=== PATIENT | male | born 1950 | race Caucasian/White ===

== ENCOUNTER 2017-09-10 23:51 | Emergency (ER) | payer MEDICARE ==
[~2017-09-10] VITALS: Ht 195.6 cm; Wt 111.1 kg
[~2017-09-10 23:51] MED LIST: AMLO-99 PO; GABA-547 PO; HYDR-2966 PO; KET10 PO; MOM PO; OMEP-125 PO; OXYC-869 PO; PER PO
--- NOTE | 2017-09-10 23:56 | ER Report ---
History and Physical Time Seen By MD: 23:55 HPI/ROS CHIEF COMPLAINT: Heart racing, chest tightness HISTORY OF PRESENT ILLNESS: 67-year-old male presents a the ER with chest tightness and puppy. Patient with heart racing for approximately 3 hours. Patient notes he had a brief episode of similar symptoms lasting 20 minutes yesterday. And some intermittent symptoms over the last month or so, lasting only a few minutes. Patient denies any diaphoresis, nausea or shortness of breath. He does not feel lightheaded. Patient has no history of cardiac disease. REVIEW OF SYSTEMS: Respiratory: No cough, no dyspnea. Cardiovascular: No chest pain, no palpitations. Gastrointestinal: No vomiting, no abdominal pain. Musculoskeletal: No back pain. Allergies: Coded Allergies: diazepam (Verified Allergy, Unknown, 09/10/17) eszopiclone (Verified Allergy, Unknown, 09/10/17) gabapentin (Verified Adverse Reaction, Intermediate, DIZZINESS, VERTIGO, ) Home Meds Active Scripts Tramadol Hcl (TRAMADOL HCL) 50 Mg Tablet, 1 TAB PO Q6H Y for PAIN, #30 MG TAKE ONE TO TWO TABLETS BY MOUTH EVERY FOUR TO SIX HOURS NEEDED Prov:ROSEY POLLOCK [place] DO 09/11/17 Rivaroxaban 20 Mg (XARELTO 20 MG) 20 Mg Tablet, 20 MG PO DAILY for stroke prevention with A. fib, #30 TAB Prov:ROSEY POLLOCK Lincoln HOLLIDAY 09/11/17 Diltiazem Hcl (CARDIZEM CD) 120 Mg Cap.er.24h, 120 MG PO DAILY for heart rate control, #30 Prov:PHILLROSEY Lincoln HOLLIDAY 09/11/17 Reported Medications Hydrochlorothiazide (HYDROCHLOROTHIAZIDE) 25 Mg Tablet, 0.5 TAB PO QDAY start on 11/01/13 10/25/13 Amlodipine Besylate (AMLODIPINE BESYLATE) 10 Mg Tablet, 0.5 TAB PO QDAY, TAB start on 10/31/13 10/25/13 Omeprazole (OMEPRAZOLE) 20 Mg Capsule.dr, 2 CAP PO QDAY TAKE ONE CAPSULE BY MOUTH ONCE A DAY 10/25/13 Discontinued Reported Medications Oxycodone Hcl/Acetaminophen (PERCOCET 7.5-325 MG TABLET) 1 Each Tablet, 1 EACH PO Q4H Y for PAIN 01/08/15 Discontinued Scripts Ketorolac Tromethamine (KETOROLAC TROMETHAMINE) 10 Mg Tab, 10 MG PO Q6H, #20 TAB Prov:CHANNING LEE MD 01/09/15 Reviewed Nurses Notes: Yes Old Medical Records Reviewed: Yes Hx Smoking: No Smoking Status: Former Smoker Hx Alcohol Use: No Constitutional Vital Sign - Last 24 Hours 09/10/17 09/10/17 09/10/17 09/11/17 23:51 23:55 23:58 00:00 Temp 97.7 Pulse ??? 125 Resp 16 B/P (MAP) 131/79 (96) 131/79 ???/??? (1665) Pulse Ox 94 O2 Delivery Room Air 09/11/17 09/11/17 09/11/17 09/11/17 00:15 00:21 00:22 00:30 Pulse 87 Resp 9 B/P (MAP) 113/88 (96) 114/78 (90) 117/73 (88) Pulse Ox 94 09/11/17 09/11/17 09/11/17 09/11/17 00:36 00:45 00:51 01:00 Pulse 86 87 Resp 15 8 B/P (MAP) 105/87 (93) 114/96 (102) Pulse Ox 94 94 09/11/17 09/11/17 09/11/17 01:06 01:15 01:16 Pulse 77 Resp 12 B/P (MAP) 132/120 (124) 117/88 (98) Pulse Ox 92 Physical Exam Vital signs stable, tachycardic, pulse ox normal General Appearance: The patient is alert, has no immediate need for airway protection and no current signs of toxicity. No acute distress Eyes: Pupils equal and round no injection. Respiratory: Chest is non tender, lungs are clear to auscultation. Cardiac: Irregular tachycardic rhythm Gastrointestinal: Abdomen is soft and non tender, no masses, bowel sounds normal. Musculoskeletal: Neck: Neck is supple and non tender. Extremities have full range of motion and are non tender. Skin: No rashes or lesions. DIFFERENTIAL DIAGNOSIS: After history and physical exam differential diagnosis was considered for chest pain including but not limited to myocardial ischemia, pericarditis pulmonary embolus, chest wall pain, dysrhythmia, pleural inflammation and pulmonary infectious causes. Medical Decision Making Data Points Result Diagram: 09/11/17 0000 09/11/17 0000 Laboratory Hematology Test 09/11/17 00:00 Red Blood Count 5.96 M/uL (4.00-5.60) Mean Corpuscular Volume 90.5 fL (80.0-96.0) Mean Corpuscular Hemoglobin 32.0 pg (26.0-33.0) Mean Corpuscular Hemoglobin Concent 35.3 g/dL (32.0-36.0) Red Cell Distribution Width 13.5 % (11.5-14.5) Mean Platelet Volume 8.3 fL (7.2-11.1) Neutrophils (%) (Auto) 51.4 % (39.4-72.5) Lymphocytes (%) (Auto) 36.3 % (17.6-49.6) Monocytes (%) (Auto) 9.7 % (4.1-12.4) Eosinophils (%) (Auto) 1.9 % (0.4-6.7) Basophils (%) (Auto) 0.7 % (0.3-1.4) Nucleated RBC Relative Count (auto) 0.5 /100WBC Neutrophils # (Auto) 5.3 K/uL (2.0-7.4) Lymphocytes # (Auto) 3.7 K/uL (1.3-3.6) Monocytes # (Auto) 1.0 K/uL (0.3-1.0) Eosinophils # (Auto) 0.2 K/uL (0.0-0.5) Basophils # (Auto) 0.1 K/uL (0.0-0.1) Nucleated RBC Absolute Count (auto) 0.05 K/uL D-Dimer Quantitative (PE/DVT) < 0.27 ug/ml (0-0.50) Sodium Level 137 mmol/L (137-145) Potassium Level 3.8 mmol/L (3.5-5.0) Chloride Level 101 mmol/L (98-107) Carbon Dioxide Level 25 mmol/L (22-30) Blood Urea Nitrogen 16 mg/dl (9-21) Creatinine 1.00 mg/dl (0.66-1.25) Glomerular Filtration Rate Calc > 60.0 Random Glucose 88 mg/dl (75-110) Calcium Level 9.8 mg/dl (8.4-10.2) Total Bilirubin 1.0 mg/dl (0.2-1.3) Aspartate Amino Transf (AST/SGOT) 37 U/L (0-35) Alanine Aminotransferase (ALT/SGPT) 62 U/L (0-56) Alkaline Phosphatase 125 U/L (0-126) Troponin I < 0.012 ng/ml B-Type Natriuretic Peptide 7 pg/ml (0-100) Total Protein 8.1 gm/dl (6.3-8.2) Albumin 4.4 g/dl (3.5-5.0) Chemistry Test 09/11/17 00:00 White Blood Count 10.2 k/uL (4.5-11.0) Red Blood Count 5.96 M/uL (4.00-5.60) Hemoglobin 19.1 g/dL (14.0-18.0) Hematocrit 54.0 % (42.0-52.0) Mean Corpuscular Volume 90.5 fL (80.0-96.0) Mean Corpuscular Hemoglobin 32.0 pg (26.0-33.0) Mean Corpuscular Hemoglobin Concent 35.3 g/dL (32.0-36.0) Red Cell Distribution Width 13.5 % (11.5-14.5) Platelet Count 224 K/uL (150-450) Mean Platelet Volume 8.3 fL (7.2-11.1) Neutrophils (%) (Auto) 51.4 % (39.4-72.5) Lymphocytes (%) (Auto) 36.3 % (17.6-49.6) Monocytes (%) (Auto) 9.7 % (4.1-12.4) Eosinophils (%) (Auto) 1.9 % (0.4-6.7) Basophils (%) (Auto) 0.7 % (0.3-1.4) Nucleated RBC Relative Count (auto) 0.5 /100WBC Neutrophils # (Auto) 5.3 K/uL (2.0-7.4) Lymphocytes # (Auto) 3.7 K/uL (1.3-3.6) Monocytes # (Auto) 1.0 K/uL (0.3-1.0) Eosinophils # (Auto) 0.2 K/uL (0.0-0.5) Basophils # (Auto) 0.1 K/uL (0.0-0.1) Nucleated RBC Absolute Count (auto) 0.05 K/uL D-Dimer Quantitative (PE/DVT) < 0.27 ug/ml (0-0.50) Glomerular Filtration Rate Calc > 60.0 Calcium Level 9.8 mg/dl (8.4-10.2) Total Bilirubin 1.0 mg/dl (0.2-1.3) Aspartate Amino Transf (AST/SGOT) 37 U/L (0-35) Alanine Aminotransferase (ALT/SGPT) 62 U/L (0-56) Alkaline Phosphatase 125 U/L (0-126) Troponin I < 0.012 ng/ml B-Type Natriuretic Peptide 7 pg/ml (0-100) Total Protein 8.1 gm/dl (6.3-8.2) Albumin 4.4 g/dl (3.5-5.0) Coagulation Test 09/11/17 00:00 D-Dimer Quantitative (PE/DVT) < 0.27 ug/ml EKG/Imaging EKG Interpretation 12 lead EK Rhythm: Atrial fibrillation with rapid ventricular response, rate 111 [place]: normal QRS: normal ST segments: normal, nonspecific slurring of the ST segments,? Digitalis effect Imaging X-ray: Single view portable chest x-ray was obtained. I viewed the images myself on the PACS system. My interpretation of the images is: No infiltrate, no effusion, normal mediastinum, prominent pulmonary shana bilaterally. The radiologist interpretation had no clinically significant variation from this interpretation. ED Course/Re-evaluation Clinical Indication for ER IV: Hydration, IV Access ED Course Patient was admitted to an examination room. H&P was done. The differential diagnoses was considered. On clinical examination. Patient's noted on the monitor to have atrial fibrillation. His vital signs are a symptomatically. Patient is up with IV established. He is given Cardizem to control his rate. Diagnostic studies are unremarkable for d-dimer, elevated troponin. Patient be discharged home on Xarelto and diltiazem 120 g extended release. He is advised to follow up with cardiology at the OR in [place]. Decision to Disposition Date: Sep 11, 2017 Decision to Disposition Time: 01:03 Depart Departure Latest Vital Signs Vital Signs Date Time Temp Pulse Resp B/P (MAP) Pulse Ox O2 Delivery O2 Flow Rate FiO2 09/11/17 01:16 117/88 (98) 09/11/17 01:06 77 12 92 09/10/17 23:58 97.7 Room Air Impression: Primary Impression: Atrial fibrillation with RVR Condition: Improved Disposition: HOME OR SELF-CARE New Scripts Tramadol Hcl (TRAMADOL HCL) 50 Mg Tablet 1 TAB PO Q6H Y for PAIN, #30 MG TAKE ONE TO TWO TABLETS BY MOUTH EVERY FOUR TO SIX HOURS NEEDED Prov: ROSEY POLLOCK DO 09/11/17 Rivaroxaban 20 Mg (XARELTO 20 MG) 20 Mg Tablet 20 MG PO DAILY for stroke prevention with A. fib, #30 TAB Prov: ROSEY POLLOCK DO 09/11/17 Diltiazem Hcl (CARDIZEM CD) 120 Mg Cap.er.24h 120 MG PO DAILY for heart rate control, #30 Prov: ROSEY POLLOCK DO 09/11/17 Patient Instructions: A-fib (Atrial Fibrillation) (ED) Additional Instructions: Follow-up with cardiology at the OR in [place] within one week ROSEY POLLOCK DO Sep 10, 2017 23:56
[2017-09-11] MEDS ORDERED: DILTIAZEM 5 MG/ML 5ML IVPUSH IVP ONE (00:10)
[2017-09-11] MEDS ORDERED: ASPIRIN 81 MG CHEW PO ONE (00:10)
--- NOTE | 2017-09-11 00:13 | EKG ---
FACILITY: [facility] - [place] PATIENT NAME: EVANS SUGGS : [id number] MR: [id number] V: [id number] EXAM DATE: ORDERING PHYSICIAN: ROSEY POLLOCK TECHNOLOGIST: RAFAELA Test Reason : IRREGULAR TACHYCARDI Blood Pressure : / mmHG Vent. Rate : 111 BPM Atrial Rate : 129 BPM P-R Int : 000 ms QRS Dur : 084 ms QT Int : 336 ms P-R-T Axes : 000 069 060 degrees QTc Int : 456 ms Atrial fibrillation with rapid ventricular response No ST-T abnormalities When compared with ECG of 08-JAN-2015 04:55, Atrial fibrillation has replaced Sinus rhythm Vent. rate has increased BY 43 BPM Confirmed by TEDYD PARKER ([id number]) on 09/11/2017 1:44:35 AM Referred By: Confirmed By:TEDDY PARKER
[2017-09-11 00:32] LABS: PLATELET COUNT, AUTOMATED 224 K/uL (150-450)
[2017-09-11] MEDS ORDERED: RIVA20TA PO (01:09)
[2017-09-11] MEDS ORDERED: DILT120C PO (01:09)
--- NOTE | 2017-09-11 01:09 | RADIOLOGY IMAGING REPORT ---
FAC[place] [facility] [place]IENT NAME: Mk Gustafson : 1950 MR: [id number] V: [id number] EXAM DATE: ORDERING PHYSICIAN: ROSEY POLLOCK TECHNOLOGIST: Location: [facility] Patient: Mk Gustafson : 1950 Visit/Account:[id number] Date of Sevice: 09/11/2017 CHEST SINGLE AP 09/11/2017 00:09 hours. HISTORY: Chest pain. COMPARISON: 01/08/2015 and 10/29/2013. TECHNIQUE: Portable AP view of the chest. FINDINGS: Tubes/lines/hardware: There are external chest leads. There are plate and screws from anterior cervic al fusion. Pulmonary: Lungs are clear. There is no pneumothorax or pleural effusion. Cardiomediastinal: Cardiac and mediastinal silhouettes are within normal limits. Bones/soft tissues: No acute osseous abnormality. There is mild degenerative change of the spine. The visible abdomen is normal. IMPRESSION: 1. No acute cardiopulmonary process. Report Dictated By: Gerda Castellon at 09/11/2017 1:03 AM Report E-Signed By: Gerda Castellon at 09/11/2017 1:04 AM WSN:[id number]
[2017-09-11] MEDS ORDERED: DILTIAZEM CD 120 MG CAPCR PO ONE (01:10)
[2017-09-11 01:16] VITALS: BP 117/88
[2017-09-11] MEDS ORDERED: TRAM-420 PO (01:20)
[2017-09-11] MEDS ORDERED: RIVAROXABAN 10 MG TAB PO SCH (09:00)
== END 2017-09-11 01:35 | disposition home or self-care (01) ==
LOC: ER 23:53
DX: I48.91 Unspecified atrial fibrillation (principal)
CPT/HCPCS: 71045; 83880; 84484; 85025; 85379; 93005; 96374; 99284; A9270; J3490; 82040; 82247; 82310; 82374; 82435; 82565; 82947; 84075; 84132; 84155; 84295; 84450; 84460; 84520

== ENCOUNTER 2018-02-15 10:28 | Emergency (ER) | payer MEDICARE ==
[~2018-02-15 10:28] MED LIST changes: +DILT120C PO; +RIVA20TA PO; +TRAM-420 PO
--- NOTE | 2018-02-15 10:40 | ER Report ---
History and Physical Time Seen By MD: 10:37 Hx. of Stated Complaint: pt presents with hx of a fib, that is "going crazy" today since 729, with palpitaqtions HPI/ROS CHIEF COMPLAINT: Palpitations HISTORY OF PRESENT ILLNESS: 5-year-old male history of atrial fibrillation comes emergency Department with complaint of palpitations which he said he had last night and this morning however on arrival here has subsequently resolved. Patient states he has had this numerous times in the past and has been seen in this emergency department for a fib with rapid ventricular response. Patient is a cardiac patient at the [facility]. Is denying chest pain shortness of breath nausea vomiting diarrhea fever chills but has had some left sided muscle soreness the last couple days which she says is reproducible. Patient denies any additional complaints at this time REVIEW OF SYSTEMS: Respiratory: No cough, no dyspnea. Cardiovascular: No chest pain has palpitations Gastrointestinal: No vomiting, no abdominal pain. Musculoskeletal: No back pain. Remainder of the 14 system rev: Yes Allergies: Coded Allergies: diazepam (Verified Allergy, Unknown, 09/10/17) eszopiclone (Verified Allergy, Unknown, 09/10/17) gabapentin (Verified Adverse Reaction, Intermediate, DIZZINESS, VERTIGO, ) Home Meds Active Scripts Rivaroxaban 20 Mg (XARELTO 20 MG) 20 Mg Tablet, 20 MG PO DAILY for stroke prevention with A. fib, #30 TAB Prov:ROSEY POLLOCK DO 09/11/17 Diltiazem Hcl (CARDIZEM CD) 120 Mg Cap.er.24h, 120 MG PO DAILY for heart rate control, #30 Prov:ROSEY POLLOCK DO 09/11/17 Reported Medications Hydrochlorothiazide (HYDROCHLOROTHIAZIDE) 25 Mg Tablet, 0.5 TAB PO QDAY start on 11/01/13 10/25/13 Amlodipine Besylate (AMLODIPINE BESYLATE) 10 Mg Tablet, 0.5 TAB PO QDAY, TAB start on 10/31/13 10/25/13 Omeprazole (OMEPRAZOLE) 20 Mg Capsule.dr, 2 CAP PO QDAY TAKE ONE CAPSULE BY MOUTH ONCE A DAY 10/25/13 Discontinued Scripts Tramadol Hcl (TRAMADOL HCL) 50 Mg Tablet, 1 TAB PO Q6H Y for PAIN, #30 MG TAKE ONE TO TWO TABLETS BY MOUTH EVERY FOUR TO SIX HOURS NEEDED Prov:ROSEY POLLOCK DO 09/11/17 Reviewed Nurses Notes: Yes Old Medical Records Reviewed: Yes Hx Smoking: No Smoking Status: Former Smoker Hx Substance Use Disorder: No Hx Alcohol Use: No Constitutional Vital Sign - Last 24 Hours 02/15/18 02/15/18 02/15/18 10:32 10:34 11:00 Temp 97.6 Pulse 89 Resp 20 B/P (MAP) 134/88 134/88 (103) 123/81 (95) Pulse Ox 93 O2 Delivery Room Air Physical Exam General Appearance: The patient is alert, has no immediate need for airway protection and no current signs of toxicity. [ ] Eyes: Pupils equal and round no injection. Respiratory: Chest is non tender, lungs are clear to auscultation. Cardiac: regular rate and rhythm [ ] Gastrointestinal: Abdomen is soft and non tender, no masses, bowel sounds normal. Musculoskeletal: Neck: Neck is supple and non tender. Extremities have full range of motion and are non tender. Skin: No rashes or lesions. [ ] DIFFERENTIAL DIAGNOSIS: After history and physical exam differential diagnosis was considered for atrial fibrillation acute myocardial infarction pulmonary emboli Medical Decision Making Data Points Result Diagram: 02/15/18 1044 02/15/18 1044 Laboratory Hematology Test 02/15/18 10:44 Red Blood Count 5.88 M/uL (4.00-5.60) Mean Corpuscular Volume 90.7 fL (80.0-96.0) Mean Corpuscular Hemoglobin 31.5 pg (26.0-33.0) Mean Corpuscular Hemoglobin Concent 34.8 g/dL (32.0-36.0) Red Cell Distribution Width 14.1 % (11.5-14.5) Mean Platelet Volume 7.9 fL (7.2-11.1) Neutrophils (%) (Auto) 50.3 % (39.4-72.5) Lymphocytes (%) (Auto) 38.6 % (17.6-49.6) Monocytes (%) (Auto) 8.6 % (4.1-12.4) Eosinophils (%) (Auto) 1.5 % (0.4-6.7) Basophils (%) (Auto) 1.0 % (0.3-1.4) Nucleated RBC Relative Count (auto) 0.1 /100WBC Neutrophils # (Auto) 4.5 K/uL (2.0-7.4) Lymphocytes # (Auto) 3.5 K/uL (1.3-3.6) Monocytes # (Auto) 0.8 K/uL (0.3-1.0) Eosinophils # (Auto) 0.1 K/uL (0.0-0.5) Basophils # (Auto) 0.1 K/uL (0.0-0.1) Nucleated RBC Absolute Count (auto) 0.01 K/uL D-Dimer Quantitative (PE/DVT) < 0.27 ug/ml (0-0.50) Sodium Level 141 mmol/L (137-145) Potassium Level 3.8 mmol/L (3.5-5.0) Chloride Level 103 mmol/L (98-107) Carbon Dioxide Level 25 mmol/L (22-30) Blood Urea Nitrogen 10 mg/dl (9-21) Creatinine 1.00 mg/dl (0.66-1.25) Glomerular Filtration Rate Calc > 60.0 Random Glucose 68 mg/dl (75-110) Calcium Level 9.3 mg/dl (8.4-10.2) Total Bilirubin 1.1 mg/dl (0.2-1.3) Aspartate Amino Transf (AST/SGOT) 34 U/L (0-35) Alanine Aminotransferase (ALT/SGPT) 49 U/L (0-56) Alkaline Phosphatase 105 U/L (0-126) Troponin I < 0.012 ng/ml Total Protein 7.5 g/dl (6.3-8.2) Albumin 4.1 g/dl (3.5-5.0) Chemistry Test 02/15/18 10:44 White Blood Count 9.0 k/uL (4.5-11.0) Red Blood Count 5.88 M/uL (4.00-5.60) Hemoglobin 18.5 g/dL (14.0-18.0) Hematocrit 53.3 % (42.0-52.0) Mean Corpuscular Volume 90.7 fL (80.0-96.0) Mean Corpuscular Hemoglobin 31.5 pg (26.0-33.0) Mean Corpuscular Hemoglobin Concent 34.8 g/dL (32.0-36.0) Red Cell Distribution Width 14.1 % (11.5-14.5) Platelet Count 230 K/uL (150-450) Mean Platelet Volume 7.9 fL (7.2-11.1) Neutrophils (%) (Auto) 50.3 % (39.4-72.5) Lymphocytes (%) (Auto) 38.6 % (17.6-49.6) Monocytes (%) (Auto) 8.6 % (4.1-12.4) Eosinophils (%) (Auto) 1.5 % (0.4-6.7) Basophils (%) (Auto) 1.0 % (0.3-1.4) Nucleated RBC Relative Count (auto) 0.1 /100WBC Neutrophils # (Auto) 4.5 K/uL (2.0-7.4) Lymphocytes # (Auto) 3.5 K/uL (1.3-3.6) Monocytes # (Auto) 0.8 K/uL (0.3-1.0) Eosinophils # (Auto) 0.1 K/uL (0.0-0.5) Basophils # (Auto) 0.1 K/uL (0.0-0.1) Nucleated RBC Absolute Count (auto) 0.01 K/uL D-Dimer Quantitative (PE/DVT) < 0.27 ug/ml (0-0.50) Glomerular Filtration Rate Calc > 60.0 Calcium Level 9.3 mg/dl (8.4-10.2) Total Bilirubin 1.1 mg/dl (0.2-1.3) Aspartate Amino Transf (AST/SGOT) 34 U/L (0-35) Alanine Aminotransferase (ALT/SGPT) 49 U/L (0-56) Alkaline Phosphatase 105 U/L (0-126) Troponin I < 0.012 ng/ml Total Protein 7.5 g/dl (6.3-8.2) Albumin 4.1 g/dl (3.5-5.0) Coagulation Test 02/15/18 10:44 D-Dimer Quantitative (PE/DVT) < 0.27 ug/ml ED Course/Re-evaluation ED Course ED clinical course 5-year-old male came in with palpitations which was asymptomatic on arrival history of A. fib not and rapid ventricular response pulse between 80 and 90 since his arrival he's been completely symptomatically negative cardiac markers troponin EKG shows atrial fibrillation otherwise unremarkable chest x-ray was negative patient be discharged diagnose a palpitation Decision to Disposition Date: Feb 15, 2018 Decision to Disposition Time: 11:22 Depart Departure Latest Vital Signs Vital Signs Date Time Temp Pulse Resp B/P (MAP) Pulse Ox O2 Delivery O2 Flow Rate FiO2 02/15/18 11:00 123/81 (95) 02/15/18 10:32 97.6 89 20 93 Room Air Impression: Primary Impression: Palpitations Condition: Improved Disposition: HOME OR SELF-CARE Referrals: ZULLY KC MD 5 Days Patient Instructions: Palpitations (DC) BRINA ESPINOZA MD Feb 15, 2018 10:39
--- NOTE | 2018-02-15 10:51 | EKG ---
FACILITY: [facility] PATIENT NAME: EVANS SUGGS : [id number] MR: [id number] V: [id number] EXAM DATE: ORDERING PHYSICIAN: BRINA ESPINOZA TECHNOLOGIST: JEROMY Tavera Reason : Blood Pressure : / mmHG Vent. Rate : 085 BPM Atrial Rate : 108 BPM P-R Int : 000 ms QRS Dur : 086 ms QT Int : 366 ms P-R-T Axes : 000 063 052 degrees QTc Int : 435 ms Atrial fibrillation Abnormal ECG When compared with ECG of 11-SEP-2017 00:05, No significant change was found Confirmed by TEDDY PARKER ([id number]) on 02/15/2018 1:17:42 PM Referred By: Hunter Confirmed By:TEDDY PARKER
[2018-02-15 10:59] LABS: PLATELET COUNT, AUTOMATED 230 K/uL (150-450)
[2018-02-15 11:30] VITALS: BP 94/59
--- NOTE | 2018-02-15 11:34 | RADIOLOGY IMAGING REPORT ---
FACILITY: [facility] - [place] PATIENT NAME: Mk Gustafson : 1950 MR: [id number] V: [id number] EXAM DATE: ORDERING PHYSICIAN: BRINA ESPINOZA TECHNOLOGIST: Location: [facility] Patient: Mk Gustafson : 1950 Visit/Account:[id number] Date of Sevice: 02/15/2018 CHEST PA AND LAT History: cp FINDINGS: Comparison studies: 09/11/2017 Tubes and Lines: None. Lungs and pleura: Well aerated. No evidence of focal consolidation or pleural effusions. Mediastinum: normal. Cardiac silhouette: normal . Osseous structures: Mild endplate spondylitic changes are seen through the thoracic spine. No evid ence of compression fractures. IMPRESSION: No acute cardiopulmonary pathology identified. Report Dictated By: Mikel Carranza MD at 02/15/2018 11:28 AM Report E-Signed By: Mikel Carranza MD at 02/15/2018 11:29 AM WSN:[id number]
== END 2018-02-15 11:39 | disposition home or self-care (01) ==
LOC: ER 10:31
DX: R00.2 Palpitations (principal)
CPT/HCPCS: 71046; 82040; 82247; 82310; 82374; 82435; 82565; 82947; 84075; 84132; 84155; 84295; 84450; 84460; 84484; 84520; 85025; 85379; 93005; 99284